=== PATIENT | female | born 1990 | race Caucasian/White ===

== ENCOUNTER 2019-08-09 17:53 | Emergency (ER) | payer SELFPAY ==
[~2019-08-09] VITALS: Ht 157.5 cm; Wt 76.0 kg
[2019-08-09 18:30] VITALS: BP 118/91
== END 2019-08-09 22:29 | disposition left against medical advice (07) ==
LOC: ER 19:59
DX: R10.9 Unspecified abdominal pain (principal); Z53.21 Procedure and treatment not carried out due to patient leaving prior to being seen by health care provider